=== PATIENT | female | born 1955 | race Caucasian/White ===

== ENCOUNTER 2025-05-26 09:17 | Outpatient (CLI) | payer MEDICARE, OTHER ==
[~2025-05-26 09:17] MED LIST: MV,C400T2 PO
--- NOTE | 2025-05-26 11:48 | RADIOLOGY REPORT ---
CLINICAL INFORMATION: Pain in right arm. TECHNIQUE: Multisequence multiplanar MRI images of the right shoulder were obtained without contrast. COMPARISON: None FINDINGS: Acromioclavicular joint: There is [id number] acromioclavicular hypertrophy and [id number] edema. There is Type 2 acromion. Small amount of fluid in the subacromial / subdeltoid bursa. Rotator cuff tendons: Postsurgical changes of prior rotator cuff repair with associated artifact from metallic anchor. Mild tendinosis of the distal supraspinatus and infraspinatus tendons. Possible small ill-defined interstitial tears near their insertions. No full-thickness or near full- thickness tear. Subscapularis and teres minor tendons are intact. Biceps tendon: No significant tendinosis. No evidence of attrition or tear. Labrum: No labral tear identified. Bones: No fracture or focal marrow contusion. Muscles: Normal muscle bulk. No atrophy. Other: No other significant findings. IMPRESSION: 1. Postsurgical changes of prior rotator cuff repair. Tendinosis of the distal supraspinatus and infraspinatus tendons with possible small ill-defined interstitial tears near their insertions. No full-thickness or near full- thickness rotator cuff tear. 2. [id number] acromioclavicular hypertrophy with mild subacromial/subdeltoid bursitis. 3. Additional findings as described above.
--- NOTE | 2025-05-26 11:58 | RADIOLOGY REPORT ---
CLINICAL INFORMATION: Pain in the right arm. [place] and heard a loud pop in the right elbow. COMPARISON: None. TECHNIQUE: Multisequence multiplanar MRI images of the right elbow were obtained without contrast. FINDINGS: BONES/JOINT: No acute fracture or focal marrow contusion. 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 No significant joint effusion. TENDONS: Mild tendinosis of the common extensor tendon origin without evidence of tear. Origin of the common flexor tendon is intact and otherwise unremarkable. There is moderate thickening of the distal biceps tendon near its insertion with moderate adjacent fluid. There is ill-defined heterogeneous s ignal and irregularity at its insertion, suspected ill-defined partial thickness tear. No retracted torn tendon fibers are seen. LIGAMENTS: Ulnar collateral ligament is intact. Mild edema adjacent to the humeral attachment of the radial collateral ligament, possible sprain. Lateral ulnar collateral ligament and annular ligament are intact. CUBITAL TUNNEL: Unremarkable. Normal signal intensity and caliber of the ulnar nerve within the cubital tunnel. MUSCLES: Normal muscle bulk. No significant atrophy. No evidence of muscle strain or tear. OTHER: No other significant findings. IMPRESSION: 1. Moderately thickened distal biceps tendon with moderate adjacent fluid. Ill- defined signal abnormality in the distal biceps tendon, likely partly due to tendinosis and suspected partial-thickness tear. No evidence of full-thickness or near full-thickness tear. 2. 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 3. Mild tendinosis at the common extensor tendon origin. 4. Mild edema in the radial collateral ligament near its humeral attachment, possible sprain.
== END 2025-05-26 23:59 | disposition home or self-care (01) ==
LOC: MRI02 09:17
PROVIDERS: ATTEND Family Medicine
DX: M19.021 Primary osteoarthritis, right elbow (principal); M77.8 Other enthesopathies, not elsewhere classified; M79.601 Pain in right arm; R60.0 Localized edema; Z98.890 Other specified postprocedural states
CPT/HCPCS: 73221